=== PATIENT | female | born 1970 | race Caucasian/White ===

== ENCOUNTER 2017-11-19 11:22 | Emergency (ER) | payer SELFPAY ==
[2017-11-19 11:35] VITALS: BP 116/69
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
--- NOTE | 2017-11-19 22:48 | EKG REPORT ---
SEVERITY:- BORDERLINE ECG - SINUS RHYTHM BORDERLINE LEFT AXIS DEVIATION BORDERLINE R WAVE PROGRESSION, ANTERIOR LEADS : Confirmed by: Joann Rios 19-Nov-2017 22:47:01
== END 2017-11-19 12:14 | disposition home or self-care (01) ==
LOC: ER 11:22
DX: S16.1XXA Strain of muscle, fascia and tendon at neck level, initial encounter (principal); M54.2 Cervicalgia; X58.XXXA Exposure to other specified factors, initial encounter
CPT/HCPCS: 93005; 93010; 99283